=== PATIENT | male | born 1985 | race African-American/Black ===

== ENCOUNTER 2021-10-16 15:27 | Emergency (ER) | payer OTHER ==
[~2021-10-16] VITALS: Ht 188 cm; Wt 92.0 kg
[~2021-10-16 15:27] MED LIST: HYDR-3164 PO; NAPR-514 PO
[2021-10-16 15:40] VITALS: BP 121/80
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
== END 2021-10-16 18:01 | disposition home or self-care (01) ==
LOC: ER 15:27
DX: S52.502A Unspecified fracture of the lower end of left radius, initial encounter for closed fracture (principal); S13.9XXA Sprain of joints and ligaments of unspecified parts of neck, initial encounter; R51.9 Headache, unspecified; V49.49XA Driver injured in collision with other motor vehicles in traffic accident, initial encounter; Y93.89 Activity, other specified; Y92.488 Other paved roadways as the place of occurrence of the external cause; Y99.8 Other external cause status
CPT/HCPCS: 70450; 71250; 72125; 73120; 74176; 99284-25